=== PATIENT | male | born 1980 | race Caucasian/White ===

== ENCOUNTER 2018-01-27 07:02 | Inpatient (IN) | payer BC ==
--- NOTE | 2018-01-26 17:30 | Pre-op HX & Phy Repo 2 SIG ---
DATE OF ADMISSION: 01/27/2018 HISTORY OF PRESENT ILLNESS: The patient is a 38-year-old male in overall stable health with intractable ulcerative colitis. The patient developed ulcerative colitis 15 years ago in 2002. He has had treatment with multiple medications including biologics of Remicade, Humira, currently Xeljanz. He has been on prednisone in the past. The patient had a colonoscopy in October 2017 at [facility], which showed dysplasia in the sigmoid colon. The patient has looked into all the options including proctocolectomy with ileoanal J-pouch, proctocolectomy with conventional Hayley ileostomy and proctocolectomy with the Paul continent intestinal reservoir. The patient has considered all of the above and does not want an ileoanal J-pouch and he wishes to avoid an external appliance required with conventional ileostomy. The patient has discontinued his Xeljanz preoperatively. 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 PAST MEDICAL HISTORY: MEDICATIONS: Xeljanz 5 mg 2 taken twice daily, discontinue pre-op ALLERGIES TO MEDICATIONS: None. OPERATIONS: Appendectomy in 2005. REVIEW OF SYSTEMS: The patient has been told he has primary sclerosing cholangitis. He had an ERCP in January 2017, which was reported as negative PHYSICAL EXAMINATION: GENERAL: The patient is 5 foot 11 inches, 240 pounds. He is arriving from out of town and will be examined upon arrival and dictated separately. IMPRESSION: Intractable ulcerative colitis. PLAN: Proctocolectomy and Paul Continent Intestinal [place] DISCUSSION: Full discussion has been had with the patient and his regarding the nature of his condition, the nature of the surgery, indications, alternatives, options, and risks. I have discussed the nature of proctocolectomy including complete resection of the colon, rectum and anal canal and anus combined with creation of a Paul continent intestinal reservoir. I have discussed the possibility that surgery will have to be staged with the final decision made based on operative findings. He could require a total abdominal colectomy with temporary conventional ileostomy followed subsequently by completion proctectomy and conversion of his conventional ileostomy to a Paul continent intestinal reservoir. I have discussed the risks of the surgery including bleeding, infection, injury to adjacent structures or organs, possibility of bladder dysfunction, impotence, and retrograde ejaculation. I have discussed the risks of deep vein thrombosis despite maximal prophylaxis with preoperative heparin and sequential compression device stockings. I have discussed the need for Catalan catheter and gastrostomy. I have discussed the specific risks of the Paul continent intestinal reservoir including the potential for slipped valve, or fistula involving the pouch or valve, or other issues that could require revision based on function or structure of the pouch. I have also discussed the possibility that he will have pouchitis and treatments that could be utilized. All questions have been answered. I will have another detailed discussion in person with the patient when he arrives from out of town. Parker Monteiro M.D. DR: ODELL JOB#: [id number] CC: SAAD
[~2018-01-27] VITALS: Ht 180.3 cm; Wt 113.4 kg
[2018-01-27] MEDS ORDERED: Zolpidem 5mg tab ORAL PRN ×2 (08:00→20:30)
[2018-01-27] MEDS ORDERED: Heparin 2000 units/Ns 1000ml INJ PRN (08:30)
[2018-01-27] MEDS ORDERED: Lidocaine 1% Plain 30 ml INJ PRN (08:30)
[2018-01-27 08:38] LABS: BASOPHILS % (AUTO) 1.5 % (0.0-2.0); EOSINOPHILS % (AUTO) 1.5 % (0.0-3.0); HEMATOCRIT 52.1 % (42.0-52.0); HEMOGLOBIN 17.7 G/DL (14.2-18.0); MEAN CORPUSCULAR VOLUME 90 FL (80-99); MONOCYTES % (AUTO) 13.2 % (1.0-10.0); NEUTROPHILS % (AUTO) 66.8 % (45.0-75.0); PLATELET COUNT 267 K/UL (150-450); RED CELL DISTRIBUTION WIDTH 11.4 % (11.6-14.8); WHITE BLOOD COUNT 7.5 K/UL (4.8-10.8)
[2018-01-27 08:51] LABS: ANION GAP 7 mmol/L (5-15); BLOOD UREA NITROGEN 17 mg/dL (7-18); CALCIUM 8.8 MG/DL (8.5-10.1); CARBON DIOXIDE 26 MMOL/L (21-32); CHLORIDE 105 MMOL/L (98-107); CREATININE 1.1 MG/DL (0.55-1.30); POTASSIUM 4.1 MMOL/L (3.5-5.1); SODIUM 138 MMOL/L (136-145)
[2018-01-27 09:00] VITALS: BP 131/92
[2018-01-27 09:01] LABS: ALANINE AMINOTRANSFERASE 60 U/L (12-78); ALBUMIN 3.8 G/DL (3.4-5.0); ALBUMIN/GLOBULIN RATIO 0.9 (1.0-2.7); ALKALINE PHOSPHATASE 137 U/L (46-116); ASPARTATE AMINO TRANSFERASE 25 U/L (15-37); BILIRUBIN,TOTAL 0.7 MG/DL (0.2-1.0)
--- NOTE | 2018-01-27 10:47 | Diagnostic Imaging Report ---
Indications: Needs long-term IV access Technique: Ultrasound confirms patent compressible left basilic vein. Total sterile technique, including sterile probe cover and sterile gel, hat, mask,, sterile gown, large sterile drape, and preparation with 2% chlorhexidine utilized. Local anesthesia with 1% lidocaine. Under real-time ultrasound guidance, puncture basilic vein using 21-gauge needle, documented and archived, passage 0.018 guidewire under direct fluoroscopy, which was used to determine appropriate catheter length, exchange for 5 Nepali peel-away sheath. 5 Nepali Bard dual-lumen power PICC cut to 46 cm. It was inserted through the peel-away sheath. Peel-away sheath and guidewire removed. Catheter fixed to the skin. Both catheter ports aspirated and flushed. Patient tolerated procedure well, without immediate complication. Digital radiograph documents satisfactory catheter tip position, at the mid superior vena cava junction. Total fluoroscopy time 0.1 minutes. Total dose area product 14 dGycm2 Impression: Successful placement of left arm PICC under sonographic and fluoroscopic guidance, as described above.
[2018-01-27] MEDS ORDERED: Magnesium Citrate Liq Btl ORAL ONE (11:00)
[2018-01-27] MEDS ORDERED: LORazepam 1mg tab SL PRN (11:00)
[2018-01-27] MEDS ORDERED: Magnesium Citrate Liq Btl ORAL SCH (11:15)
--- NOTE | 2018-01-27 11:23 | Diagnostic Imaging Report ---
Indication: Cough, status post PICC placement Technique: One view of the chest Comparison: none Findings: There is a left arm PICC, tip which projects at the level of the mid superior vena cava. The lungs and pleural spaces are clear. The heart size is normal Impression: No acute process
[2018-01-27 12:07] LABS: APPEARANCE,URINE CLEAR; BILIRUBIN, URINE NEGATIVE (NEGATIVE); COLOR,URINE PALE YELLOW; GLUCOSE, URINE (UA) NEGATIVE (NEGATIVE); KETONES,URINE NEGATIVE (NEGATIVE); LEUKOCYTE ESTERASE ,URINE NEGATIVE (NEGATIVE); NITRITE,URINE NEGATIVE (NEGATIVE); PH,URINE 6 (4.5-8.0); PROTEIN,URINE NEGATIVE (NEGATIVE); UROBILINOGEN,URINE NORMAL MG/DL (0.0-1.0)
[2018-01-27] MEDS: Neomycin Sulfate 500mg Tab ORAL SCH ×3 (12:12→20:28)
--- NOTE | 2018-01-27 16:38 | General Progress Note ---
Progress Note Progress Note H&P dictated. Labs all satisfactory with Hgb 17.7, albumin 3.8, alkaline phos 137 (history of PSC) Abdomen slightly obese Perianal tissues normal Stopped Xeljanz 3 weeks ago Full discussion re the surgery, options, risks; all questions answered; and parents present. Parker Monteiro MD Jan 27, 2018 16:38
[2018-01-27] MEDS: D5 1/2NS w/KCl 20mEq 1,000 ML IV SCH ×2 (18:37→23:56)
--- NOTE | 2018-01-27 18:45 | Anethesia Preoperative Eval ---
Anesthesia Pre-op PMH/ROS General Date of Evaluation: Jan 27, 2018 Time of Evaluation: 18:42 Anesthesiologist: Loreto ASA Score: ASA 2 Mallampati Score Class I : Soft palate, uvula, fauces, pillars visible Class II: Soft palate, uvula, fauces visible Class III: Soft palate, base of uvula visible Class IV: Only hard plate visible Mallampati Classification: Class II Surgeon: Thania Diagnosis: Ulcerative colitis Surgical Procedure: Total proctocolectomy, Anesthesia History: none Family History: no anesthesia problems Allergies: Coded Allergies: No Known Allergies (Unverified , 01/27/18) Medications: see eMAR Past Medical History Cardiovascular: Denies: HTN, CAD, IN, valve dz, arrhythmia, other Pulmonary: Denies: asthma, COPD, CHANCE, other Gastrointestinal/Genitourinary: Reports: GERD, other - UC with cellular dysplasia; Denies: CRI, ESRD Neurologic/Psychiatric: Denies: dementia, CVA, depression/anxiety, TIA, other Endocrine: Denies: DM, hypothyroidism, steroids, other HEENT: Denies: cataract (L), cataract (R), glaucoma, ROBINSON (L), ROBINSON (R), other Hematology/Immune: Denies: anemia, DVT, bleeding disorder, other Musculoskeletal/Integumentary: Denies: OA, RA, DJD, DDD, edema, other Other: obesity PMH Narrative: as above PSxH Narrative: Appendectomy Anesthesia Pre-op Phys. Exam Physician Exam Last Vital Signs Date Time Temp Pulse Resp B/P (MAP) Pulse Ox O2 Delivery O2 Flow Rate FiO2 01/27/18 09:00 97.9 18 131/92 100 Room Air 97.9 Constitutional: NAD Neurologic: CN 2-12 intact Cardiovascular: RRR, no M/R/G Respiratory: CTA Gastrointestinal: S/NT/ND Airway Exam Mallampati Score: Class II MO: full Neck: short ROM: full Teeth: intact Dentures: no upper, no lower Anesthesia Pre-op A/P Labs Hematology Test 01/27/18 08:25 White Blood Count 7.5 K/UL (4.8-10.8) Red Blood Count 5.80 M/UL (4.70-6.10) Hemoglobin 17.7 G/DL (14.2-18.0) Hematocrit 52.1 % (42.0-52.0) H Mean Corpuscular Volume 90 FL (80-99) Mean Corpuscular Hemoglobin 30.4 PG (27.0-31.0) Mean Corpuscular Hemoglobin Concent 33.9 G/DL (32.0-36.0) Red Cell Distribution Width 11.4 % (11.6-14.8) L Platelet Count 267 K/UL (150-450) Mean Platelet Volume 6.5 FL (6.5-10.1) Neutrophils (%) (Auto) 66.8 % (45.0-75.0) Lymphocytes (%) (Auto) 17.0 % (20.0-45.0) L Monocytes (%) (Auto) 13.2 % (1.0-10.0) H Eosinophils (%) (Auto) 1.5 % (0.0-3.0) Basophils (%) (Auto) 1.5 % (0.0-2.0) Coagulation Test 01/27/18 08:25 Prothrombin Time 10.2 SEC (9.30-11.50) Prothromb Time International Ratio 1.0 (0.9-1.1) Activated Partial Thromboplast Time 28 SEC (23-33) Chemistry Test 01/27/18 08:25 Sodium Level 138 MMOL/L (136-145) Potassium Level 4.1 MMOL/L (3.5-5.1) Chloride Level 105 MMOL/L (98-107) Carbon Dioxide Level 26 MMOL/L (21-32) Anion Gap 7 mmol/L (5-15) Blood Urea Nitrogen 17 mg/dL (7-18) Creatinine 1.1 MG/DL (0.55-1.30) Estimat Glomerular Filtration Rate > 60 mL/min (>60) Glucose Level 90 MG/DL (74-106) Calcium Level 8.8 MG/DL (8.5-10.1) Total Bilirubin 0.7 MG/DL (0.2-1.0) Aspartate Amino Transf (AST/SGOT) 25 U/L (15-37) Alanine Aminotransferase (ALT/SGPT) 60 U/L (12-78) Alkaline Phosphatase 137 U/L (46-116) H Total Protein 8.1 G/DL (6.4-8.2) Albumin 3.8 G/DL (3.4-5.0) Globulin 4.3 g/dL Albumin/Globulin Ratio 0.9 (1.0-2.7) L Risk Assessment & Plan Assessment: ASA 2 Plan: GA with ETT Status Change Before Surgery: No Pre-Antibiotics Drug: As scheduled Roman Dangelo MD Jan 27, 2018 18:45
--- NOTE | 2018-01-27 19:30 | Pre-op HX & Phy Repo 2 SIG ---
DATE OF ADMISSION: 01/27/2018 HISTORY OF PRESENT ILLNESS: The patient has now arrived from out of town and is examined. ADDITIONAL HISTORY: The patient states that he had a liver biopsy in 2004, which is the source of his diagnosis of primary sclerosing cholangitis with a negative ERCP in 2017. He also has plantar fasciitis of the right heel, injections had not been helpful, but he sleeps with a boot with good relief. PHYSICAL EXAMINATION: GENERAL: He is well developed, well nourished, 5 foot 11 inches, and 247 pounds. HEENT: Within normal limits. LUNGS: Clear. HEART: Regular rhythm. BREASTS: Without masses. ABDOMEN: Soft with a mild panniculus. There is no mass. No tenderness. No organomegaly. No distention. No inguinal lymphadenopathy. GENITALIA: Within normal limits. RECTAL: Normal perianal skin. EXTREMITIES: Without edema. Pulses 3+ femoral to pedal bilaterally. Left upper extremity congenital port-wine stain. NEUROLOGIC: Physiologic. IMPRESSION: Intractable ulcerative colitis. PLAN: Proctocolectomy with Paul continent intestinal reservoir. DISCUSSION: Full discussion has been had with the patient, his and parents all present including the nature of the surgery, indications, alternatives, options, and risks. I have discussed the general risks of surgery including bleeding, infection, injury to adjacent structures or organs, failure of the perineal incision to heal, bladder dysfunction, sexual dysfunction with impotence or retrograde ejaculation, deep vein thrombosis despite prophylaxis, anesthetic reactions, neuralgia, etc. I have discussed the specific risks of the Paul continent intestinal reservoir procedure including the potential need for revision due to slipped valve or fistula of pouch or valve or other issues with the pouch or stoma. All questions have been answered. The patient understands and agrees to proceed. A dual lumen PICC line has been placed. He is getting bowel prep, both mechanical and antibiotic. He will receive intravenous hydration, receive intravenous antibiotics started tonight, and preoperative subcutaneous heparin. Parker Monteiro M.D. DR: ODELL JOB#: [id number] CC: SAAD
[2018-01-27] MEDS: Dyna-Hex 2% Top Sol 2oz TOPIC SCH (20:28)
[2018-01-27 21:00] VITALS: BP 127/85
[2018-01-27] MEDS: Ampicillin/Sulbactam Sod 3 GM in NS 110 ML IV SCH (23:57)
[2018-01-28] VITALS (13 sets, daily range): BP systolic 64–136; BP diastolic 62–88
[2018-01-28] MEDS ORDERED: Heparin 5000 units/ml inj SUBQ ONE (05:30)
[2018-01-28] MEDS: Ampicillin/Sulbactam Sod 3 GM in NS 110 ML IV SCH ×3 (06:13→23:36)
[2018-01-28] MEDS ORDERED: Propofol 200mg/20ml IV ONE ×2 (06:45→07:04)
[2018-01-28] MEDS ORDERED: Lidocaine 1% MPF 10mg/ml 5ml ONE (06:45)
[2018-01-28] MEDS ORDERED: Dexamethasone 4mg/ml vial ONE (06:45)
[2018-01-28] MEDS ORDERED: Bacitracin 50000 Units Vial ONE (07:07)
[2018-01-28] MEDS ORDERED: NeoSporin Gu Irrig 1ml Amp IRRIG ONE (07:07)
--- NOTE | 2018-01-28 07:15 | Pre-Procedure Note/Attestation ---
Pre-Procedure Note/Attestation Complete Prior to Procedure Planned Procedure: not applicable Procedure Narrative: proctocolectomy, vazquez continent intestinal reservoir, gastrostomy Indications for Procedure Pre-Operative Diagnosis: ulcerative colitis Attestation I attest that I discussed the nature of the procedure; its benefits; risks and complications; and alternatives (and the risks and benefits of such alternatives ), prior to the procedure, with the patient (or the patient's legal mechanical service representative). I attest that, if there was a reasonable possibility of needing a blood transfusion, the patient (or the patient's legal mechanical service representative) was given the [facility] standardized written summary, pursuant to the Carlos Vasquez Blood Safety Act ([place] Health and Safety Code # 1645, as amended). I attest that I re-evaluated the patient just prior to the surgery and that there has been no change in the patient's H&P, except as documented below: none Parker Monteiro MD Jan 28, 2018 07:15
[2018-01-28] MEDS ORDERED: fentaNYL 100 mcg/2 mL IV ONE (07:17)
[2018-01-28] MEDS ORDERED: Zemuron 50mg/5ml Inj IV ONE (07:17)
[2018-01-28] MEDS ORDERED: Sterile Water Irrig 1000ml IRRIG ONE (07:30)
[2018-01-28] MEDS ORDERED: LR 1000ml ONE (07:30)
[2018-01-28] MEDS ORDERED: NS Irrig 1000ml ONE (07:30)
[2018-01-28] MEDS ORDERED: ePHEDrine 50mg/ml Inj ONE (09:01)
[2018-01-28] MEDS: D5 1/2NS w/KCl 20mEq 1,000 ML IV SCH (10:15)
[2018-01-28] MEDS ORDERED: LR 1000ml 1,000 ML IVLG SCH (12:39)
[2018-01-28] MEDS ORDERED: Midazolam 2mg/2ml Inj IVP PRN (12:45)
[2018-01-28] MEDS ORDERED: DiphenhydrAMINE 50mg/ml Inj IVP PRN ×2 (12:45→15:30)
[2018-01-28] MEDS ORDERED: fentaNYL 100 mcg/2 mL IV PRN (12:45)
[2018-01-28] MEDS ORDERED: Labetalol 5mg/ml 20ml vial IV PRN (12:45)
[2018-01-28] MEDS ORDERED: Acetaminophen (Non formulary) 100 ML IV ONE (12:45)
[2018-01-28] MEDS ORDERED: Hydromorphone 0.5mg/0.5ml inj IVP PRN (12:45)
[2018-01-28] MEDS ORDERED: Neostigmine 1mg/ml 10ml Inj ONE (14:48)
[2018-01-28] MEDS ORDERED: Glycopyrrolate 0.2mg/ml 1ml Vial ONE (14:49)
[2018-01-28] MEDS ORDERED: Ketorolac 30mg Inj ONE (14:51)
--- NOTE | 2018-01-28 15:29 | Brief Operative Note ---
Immediate Post Operative Note Operative Note Pre-op Diagnosis: ulcerative colitis Procedure: proctocolectomy, Paul continent intestinal reservoir, gastrostomy Post-op Diagnosis: same Post-op Diagnosis: same as pre-op Findings: consistent w/pre-op dx studies Surgeon: courtney Medicaid Service Coordinator: tati Anesthesiologist: Specimen: yes - colon, rectum, anal canal and anus; small bowel trimming Complications: none Condition: stable Fluids: 2500cc Estimated Blood Loss: volume - 200cc Drains: other - YOAN x2, 28 Catalan to Paul pouch, 18 Catalan gastrostomy Implant(s) used?: No Parker Monteiro MD Jan 28, 2018 15:29
[2018-01-28] MEDS ORDERED: Acetaminophen 650mg/20.3ml GT PRN (15:30)
[2018-01-28] MEDS ORDERED: LORazepam 1mg tab SL PRN ×2 (15:30)
[2018-01-28] MEDS ORDERED: Morphine Sulfate 4mg/ml Inj (IV USE ONLY) IV PRN (15:40)
[2018-01-28] MEDS ORDERED: Morphine Sulfate 2mg/ml Inj(IV/IM USE ONLY) IVP PRN (15:40)
[2018-01-28] MEDS ORDERED: Rate Change PCA 1 Each MISC PRN (15:40)
[2018-01-28] MEDS ORDERED: Naloxone 0.4mg/ml Inj IVP PRN (15:40)
--- NOTE | 2018-01-28 15:40 | Immediate Post-Op Evaluation ---
Immediate Post-Op Evalulation Immediate Post-Op Evalulation Procedure: proctocolectomy, continent intestinal resevoir, catheter gastrostomy Date of Evaluation: Jan 28, 2018 Time of Evaluation: 15:20 IV Fluids: LR 2500ml Blood Products: 0 Estimated Blood Loss: 200ml Urinary Output: 600ml Blood Pressure Systolic: 130 Blood Pressure Diastolic: 80 Pulse Rate: 115 Respiratory Rate: 16 O2 Sat by Pulse Oximetry: 100 Temperature (Fahrenheit): 97.5 Pain Score (1-10): 4 Nausea: No Vomiting: No Complications none Patient Status: awake, patent, none Hydration Status: adequate Drug: unasyn 3grams, metronidazone 500mg Given Within 1 Hr of Incision: No Time Given: 12:00 Hannah Alba M.D. Jan 28, 2018 15:40
[2018-01-28] MEDS: PCA Morphine 1mg/ml 30 ML IV PRN ×2 (15:41→21:20)
--- NOTE | 2018-01-28 15:49 | Cardiology Report ---
APPROVED REPORT EKG Measurement Heart [id number] Normal sinus rhythm Normal ECG
[2018-01-28] MEDS ORDERED: PCA Education Pamphlet MISC ONE (17:00)
--- NOTE | 2018-01-28 17:15 | Operative Note - Dictated ---
DATE OF OPERATION: 01/28/2018 SURGEON: Parker Monteiro M.D. OIL DISPENSER SURGEON: Freddie Holcomb M.D. ANESTHESIOLOGIST: Hannah Alba M.D. TYPE OF ANESTHESIA: General endotracheal. PREOPERATIVE DIAGNOSIS: Intractable ulcerative colitis with dysplasia POSTOPERATIVE DIAGNOSIS: Intractable ulcerative colitis with dysplasia OPERATION PERFORMED: 1. Proctocolectomy. 2. Paul continent intestinal reservoir. 3. Catheter gastrostomy. INDICATIONS AND FINDINGS: The patient has had ulcerative colitis for 15 years and been on various medications, most recently Xeljanz. Colonoscopy in October 2017 revealed ulcerative pancolitis with rectal bleeding and high and low-grade glandular dysplasia at 55 cm. The patient is 5 foot 11 inches, 240 pounds. Operative findings included markedly foreshortened mesentery. DESCRIPTION OF PROCEDURE: The patient was taken to the operating room and under general endotracheal anesthesia with sequential compression device stockings and Catalan catheter in place and having received preoperative intravenous antibiotics and subcutaneous heparin, the patient was prepped and draped in the usual fashion in lithotomy position using Demar stirrups. A midline incision was made from the midepigastrium to the pubis, but ultimately had to be extended toward the xiphoid. Hemostasis was achieved with cautery. Abdominal exploration revealed the liver to be normal in appearance and palpation. The gallbladder was slightly distended, but no stones were palpable and was otherwise unremarkable. There was an ample amount of small intestine, all of which was normal including stomach and duodenum. The colon had chronic changes consistent with diffuse ulcerative colitis. The bladder was adherent to the posterior sheath of the lower right rectus and was taken down. A Bookwalter retractor was used. The terminal ilium and right colon were mobilized along the line of Toldt. The hepatic flexure was taken down protecting the duodenum. The lesser sac was entered and the omentum was resected with the colon. Using the Thunderbeat the mesentery was divided and the splenic flexure was taken down and the descending colon mobilized along the line of Toldt as was the rectosigmoid. Both ureters were visualized, and the ureters and bladder were protected throughout the procedure. The major mesenteric vessels were ligated with #0 silk. The presacral hollow was entered. The lateral stalks were divided and the bladder dissected anteriorly dissecting the rectum down to the prostate. I divided the rectosigmoid colon with the DYAN stapling device and the abdominal colon was taken off the field and given to the pathologist who found no evidence of overt malignancy. I then went to the perineum and placed a 0 silk pursestring around the anus. With an elliptical incision and an intersphincteric dissection, the rectum, anal canal, and anus were circumferentially dissected. The abdominal cavity was entered posteriorly and additional dissection performed from above. Finally, the entire specimen was mobilized and removed intact and given to the pathologist who again found no evidence of overt malignancy. Through separate stab incisions through the medial buttocks on each side of the perineal incision, 19 mm round Jethro drains were placed into the presacral space and each was sutured to the skin with a 2-0 silk suture and connected to bulb suction. The perineal floor was closed in layers with interrupted 0 Vicryl and interrupted 2-0 Vicryl and skin closed with interrupted vertical mattress 2-0 nylon sutures. A dry sterile dressing was applied, and at this point the patient was taken out of lithotomy position and a pillow placed under his knees and the sterile field protected. Attention was then directed toward creating the Paul continent intestinal reservoir. The stapled end of the ileum was imbricated with interrupted 3-0 silk and then 12 cm proximal the bowel was marked with a chromic suture for the collar segment. 15 cm proximal to this was marked for the ileal reservoir. Then the two 15 cm loops were placed side by side, and with appropriately placed enterotomies and using the DYAN 75 stapling device, the ileal pouch was created. The pouch was everted and the staple line was intact without any defects. The mucosal aspect was inspected and hemostasis secured. The apex was closed with a 3-0 silk suture. The junction of the afferent bowel and the pouch was marked with a chromic suture and 12 cm proximal marked for the valve segment. A 2-fingerbreadth mesenteric hiatus created at this point using the Thunderbeat to control the mesentery. The abdominal wall measured 6 cm. The appropriate length access segment was measured and marked. Preserving 2 good vessels to the access segment, the bowel was divided proximally with the linear stapler 30, and distally left open to become the new stoma. The mesentery was short and not mobile. The pouch could not reach deeply into the pelvis. The bladder lay draped over the deep pelvis and several 3-0 chromic sutures were placed to the peritoneum to seal this area. Then the valve segment was prepared by stripping the mesentery on each side and the serosa was scarified with cautery. With gradual intussusception, a 6.0 cm long nipple valve was created. Two applications of the PI55 stapling device with 4.8 mm maribel were placed 90 degrees away from the mesentery on each side. 3-0 silk sutures were placed between the access segment near the mesentery on both sides and the pouch. Then a third application of the PI55 stapling device with 4.8 mm maribel was made to staple the valve to the anterior pouch wall. Additional 3-0 silks were placed between access segment and pouch. Now intestinal continuity was restored by taking the proximal end of the small bowel imbricating the staple line with 3-0 silk, and with a very short blind end, placed side by side to the pouch enterotomy. An outer layer of 3-0 silk was placed. The proximal bowel was opened and full-thickness continuous locking 2-0 Vicryl placed followed by 3-0 silk anterior sutures. A 2 fingerbreadth and slightly wider anastomosis was created. The end of the collar was brought through the mesenteric hiatus and sutured to itself, to the access segment and to the pouch with interrupted 3-0 silk sutures. A 28-Kosovan Catalan catheter was readily placed into the pouch. During the procedure, a Mars suction was used to confirm and maintain alignment. With the 28-Kosovan Catalan catheter in the pouch and the afferent bowel manually occluded, the pouch was distended with 150 mL of saline. There was no evidence of any extravasation, and when the catheter was removed, there was no incontinence. The catheter was reintroduced and the pouch decompressed. At a previously marked site, low in the right lower quadrant, a 2.5 cm narrow ellipse of skin was excised in transverse orientation and a generous cruciate incision made in the fascia with a 2 to 3 fingerbreadth abdominal wall hiatus created. The pouch was sutured to the peritoneum with interrupted 3-0 Vicryl. There was moderate difficulty bringing the access segment through to become the new stoma because the mesentery was so foreshortened and contracted. There was slight redundancy of the access segment, but the stoma was primarily matured with continuous 2-0 Vicryl locking sutures starting at the 3 and 9 o'clock positions. The 28-Kosovan Catalan catheter was positioned in the pouch and then sutured to the skin with two sutures of 2-0 silk. It was then flushed and connected to a gravity drainage bag. I then placed a catheter gastrostomy by bringing an 18-Kosovan Catalan catheter through a stab incision in the left upper quadrant, and placing it to the anterior stomach greater curve body between two concentric 2-0 chromic pursestring sutures with the 18-Kosovan Catalan inserted into the stomach with the balloon inflated and placed in the fundus and the stomach then sutured to the anterior abdominal wall with multiple interrupted 3-0 silk sutures. The catheter was flushed and connected to a gravity drainage bag. The catheter was sutured to the skin with a 2-0 silk suture. The entire abdomen was inspected and irrigated and hemostasis was secure. Throughout the procedure, there were frequent changes of gloves and antibiotic soaked laps were used to protect the abdominal wall. The midline incision was closed in one layer with continuous #1 looped PDS starting at both ends. Subcutaneous tissues were again irrigated with antibiotic solution and the skin closed with maribel. Dry sterile dressings were applied to the perineum and the abdominal incision. Final sponge and needle counts were correct. ESTIMATED BLOOD LOSS: 200 mL. The patient tolerated the procedure well and left the operating room in stable condition. Parker Monteiro M.D. DR: HARRIS JOB#: [id number] CC: SAAD
[2018-01-28] MEDS: D5 1/4NS w/KCl 20mEq 1,000 ML IV SCH ×2 (17:28→23:34)
--- NOTE | 2018-01-28 17:30 | General Progress Note ---
Progress Note Progress Note Sleepy but arousable, then alert. VSS with p 110 c/o mild numbness first and second digits at tips both hands. Lower extremities wnl Gastrostomy bilious Urine clear yellow BCIR catheter serosang as expected Imp. Stable Plan: Bedrest NPO Parker Monteiro MD Jan 28, 2018 17:30
[2018-01-28] MEDS: PCA shift volume MISC SCH (19:00)
[2018-01-28] MEDS: Dyna-Hex 2% Top Sol 2oz TOPIC SCH (20:17)
[2018-01-29] VITALS: BP 125/79
[2018-01-29] MEDS: PCA Morphine 1mg/ml 30 ML IV PRN ×4 (02:33→20:40)
[2018-01-29 04:00] VITALS: BP 130/64
[2018-01-29] MEDS: D5 1/4NS w/KCl 20mEq 1,000 ML IV SCH ×4 (05:46→21:21)
[2018-01-29] MEDS: Ampicillin/Sulbactam Sod 3 GM in NS 110 ML IV SCH ×3 (05:46→18:29)
[2018-01-29 06:27] LABS: HEMATOCRIT 48.8 % (42.0-52.0); HEMOGLOBIN 16.5 G/DL (14.2-18.0); MEAN CORPUSCULAR VOLUME 92 FL (80-99); PLATELET COUNT 236 K/UL (150-450); RED BLOOD COUNT 5.31 M/UL (4.70-6.10); RED CELL DISTRIBUTION WIDTH 11.6 % (11.6-14.8); WHITE BLOOD COUNT 20.8 K/UL (4.8-10.8)
[2018-01-29 06:35] LABS: ALANINE AMINOTRANSFERASE 91 U/L (12-78); ALBUMIN 2.6 G/DL (3.4-5.0); ALBUMIN/GLOBULIN RATIO 0.7 (1.0-2.7); ALKALINE PHOSPHATASE 96 U/L (46-116); ANION GAP 3 mmol/L (5-15); ASPARTATE AMINO TRANSFERASE 228 U/L (15-37); BILIRUBIN,TOTAL 0.5 MG/DL (0.2-1.0); BLOOD UREA NITROGEN 15 mg/dL (7-18); CALCIUM 7.6 MG/DL (8.5-10.1); CARBON DIOXIDE 27 MMOL/L (21-32); CHLORIDE 104 MMOL/L (98-107); CREATININE 1.2 MG/DL (0.55-1.30); POTASSIUM 5.1 MMOL/L (3.5-5.1); SODIUM 133 MMOL/L (136-145)
[2018-01-29] MEDS: PCA shift volume MISC SCH ×2 (07:14→19:22)
[2018-01-29 08:00] VITALS: BP 119/73
--- NOTE | 2018-01-29 08:05 | General Progress Note ---
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 Numbness of fingertips digits 1-3 right hand with normal strength x3 nerve distribution, left hand numbness resolved - normal strength x 3 nerve distribution. Legs/feet - wnl Chest decreased expansion but clear Cor - reg rhythm Abdomen mildly distended, soft, incision clean, stoma dark Perineal incision clean 12 hours overnight: urine 650 Gastrostomy scant bilious BCIR ileo 50 sanguinous YOAN drains 10/10 WBC 20,800 Hgb 16.5 BUN 15 Cr 1.2 Na 133 K 5.1 slight increase ALT/'AST ( normal pre-op) Normal Alk phos (slight elevation pre-op) Albumin 2.6 Imp. Ileus Atelectasis Malnutrition and extensive intestinal surgery Plan: NPO Incentive spirometer Bedrest today with SCDs TPN f/u labs Will re-examine the stoma later today re possible ischemia Parker Monteiro MD Jan 29, 2018 08:05
[2018-01-29] MEDS ORDERED: Dextrose 10% 1,000 ML IV PRN (11:00)
--- NOTE | 2018-01-29 11:09 | 48 Hour Post Anesthesia Eval ---
Post Anesthesia Evaluation Procedure: proctocolectomy, continent intestinal resevoir, catheter gastrostomy Date of Evaluation: Jan 29, 2018 Time of Evaluation: 11:08 Blood Pressure Systolic: 128 0: 62 Pulse Rate: 84 Respiratory Rate: 22 Temperature (Fahrenheit): 97.6 O2 Sat by Pulse Oximetry: 98 Airway: patent Nausea: No Vomiting: No Pain Intensity: 4 Hydration Status: adequate Cardiopulmonary Status: stable Mental Status/LOC: patient returned to baseline Follow-up Care/Observations: n/a Post-Anesthesia Complications: none Follow-up care needed: N/A Roman Dangelo MD Jan 29, 2018 11:09
[2018-01-29 12:00] VITALS: BP 112/61
[2018-01-29] MEDS ORDERED: Phytonadione 10 mg/mL 1ml amp SUBQ SCH (12:30)
[2018-01-29 16:00] VITALS: BP 149/78
[2018-01-29] MEDS: Heparin 5000 units/ml inj SUBQ SCH (18:00)
[2018-01-29 20:00] VITALS: BP 121/74
[2018-01-29] MEDS: Dyna-Hex 2% Top Sol 2oz TOPIC SCH (20:16)
[2018-01-29] MEDS ORDERED: Tpn 2,000 ML IV SCH (21:00)
[2018-01-29] MEDS ORDERED: Fat Emulsion Iv 20% 250 ML IV SCH (21:00)
[2018-01-29] MEDS: Phytonadione 10 mg/mL 1ml amp SUBQ SCH (21:08)
[2018-01-29] MEDS: Fat Emulsion Iv 20% 240 ML in Tpn 1,920 ML IV SCH (21:09)
[2018-01-29] MEDS ORDERED: Tubing IV Secondary IV ONE (22:02)
[2018-01-29] MEDS ORDERED: NS Irrig 1000ml ONE (22:02)
[2018-01-29] MEDS ORDERED: NS 500ML ONE (22:02)
[2018-01-29] MEDS ORDERED: D5 1/2NS 1000ml IV ONE (22:02)
[2018-01-30] VITALS: BP 126/73
[2018-01-30] MEDS: Ampicillin/Sulbactam Sod 3 GM in NS 110 ML IV SCH ×4 (00:05→17:51)
[2018-01-30] MEDS: NovoLOG Insulin Flexpen SUBQ SCH ×4 (00:17→17:54)
[2018-01-30 04:00] VITALS: BP 131/75
[2018-01-30 05:35] LABS: HEMATOCRIT 39.6 % (42.0-52.0); HEMOGLOBIN 13.6 G/DL (14.2-18.0); MEAN CORPUSCULAR VOLUME 92 FL (80-99); PLATELET COUNT 211 K/UL (150-450); RED BLOOD COUNT 4.29 M/UL (4.70-6.10); RED CELL DISTRIBUTION WIDTH 11.6 % (11.6-14.8); WHITE BLOOD COUNT 16.2 K/UL (4.8-10.8)
[2018-01-30 05:47] LABS: ANION GAP 2 mmol/L (5-15); BLOOD UREA NITROGEN 14 mg/dL (7-18); CALCIUM 7.6 MG/DL (8.5-10.1); CARBON DIOXIDE 31 MMOL/L (21-32); CHLORIDE 104 MMOL/L (98-107); CREATININE 1.1 MG/DL (0.55-1.30); POTASSIUM 4.3 MMOL/L (3.5-5.1); SODIUM 137 MMOL/L (136-145)
[2018-01-30] MEDS: Heparin 5000 units/ml inj SUBQ SCH ×2 (05:48→18:18)
[2018-01-30] MEDS: PCA shift volume MISC SCH ×2 (07:00→19:00)
[2018-01-30] MEDS ORDERED: Naloxone 0.4mg/ml Inj IVP PRN (07:53)
[2018-01-30 08:00] VITALS: BP 126/75
[2018-01-30] MEDS ORDERED: Morphine Sulfate 2mg/ml Inj(IV/IM USE ONLY) IVP PRN (08:00)
[2018-01-30] MEDS ORDERED: Rate Change PCA 1 Each MISC PRN (08:00)
[2018-01-30] MEDS ORDERED: DiphenhydrAMINE 50mg/ml Inj IVP PRN (08:00)
[2018-01-30] MEDS: PCA Morphine 1mg/ml 30 ML IV PRN ×2 (08:01→18:17)
--- NOTE | 2018-01-30 08:25 | General Progress Note ---
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 Fairly good IS effort with chest clear Abdomen mildly distended, incision clean, stoma pinker Perineal incision clean with YOAN drains intact x 2 Urine 1450 Gastrostomy 625 BCIR ileo - scant serosang JPs 80+125 but much decreased overnight outputs WBC down 16,200 Hgb down 13.6 BUN 14 Cr 1.1 Imp. Ileus Malnutrition Plan: TPN started last night continue Catalan (pelvic dissection + proctectomy) NPO Mobilize with PT Mobility Protocol Heparin 5000units SQ q12h since yesterday f/u labs Parker Monteiro MD Jan 30, 2018 08:25
[2018-01-30] MEDS: Morphine Sulfate 4mg/ml Inj (IV USE ONLY) IV PRN (10:47)
[2018-01-30 12:45] VITALS: BP 121/78
[2018-01-30 16:00] VITALS: BP 123/72
[2018-01-30] MEDS: D5 1/4NS w/KCl 20mEq 1,000 ML IV SCH (17:51)
[2018-01-30 20:03] VITALS: BP 121/73
[2018-01-30] MEDS: Dyna-Hex 2% Top Sol 2oz TOPIC SCH (20:30)
[2018-01-30] MEDS: Fat Emulsion Iv 20% 240 ML in Tpn 1,920 ML IV SCH (20:53)
[2018-01-31] VITALS: BP 105/65
[2018-01-31] MEDS: Ampicillin/Sulbactam Sod 3 GM in NS 110 ML IV SCH ×5 (00:19→17:36)
[2018-01-31] MEDS: NovoLOG Insulin Flexpen SUBQ SCH ×4 (02:37→17:45)
[2018-01-31 04:00] VITALS: BP 126/83
[2018-01-31] MEDS: Heparin 5000 units/ml inj SUBQ SCH (06:08)
[2018-01-31 06:14] LABS: BASOPHILS % (AUTO) 0.8 % (0.0-2.0); EOSINOPHILS % (AUTO) 1.4 % (0.0-3.0); HEMATOCRIT 36.6 % (42.0-52.0); HEMOGLOBIN 12.5 G/DL (14.2-18.0); LYMPHOCYTES % (AUTO) 11.8 % (20.0-45.0); MEAN CORPUSCULAR VOLUME 92 FL (80-99); MONOCYTES % (AUTO) 10.6 % (1.0-10.0); NEUTROPHILS % (AUTO) 75.3 % (45.0-75.0); PLATELET COUNT 221 K/UL (150-450); RED BLOOD COUNT 3.99 M/UL (4.70-6.10); RED CELL DISTRIBUTION WIDTH 11.4 % (11.6-14.8); WHITE BLOOD COUNT 10.8 K/UL (4.8-10.8)
[2018-01-31 06:24] LABS: ANION GAP 4 mmol/L (5-15); BLOOD UREA NITROGEN 13 mg/dL (7-18); CARBON DIOXIDE 29 MMOL/L (21-32); CHLORIDE 105 MMOL/L (98-107); CREATININE 0.8 MG/DL (0.55-1.30); PHOSPHORUS 2.2 MG/DL (2.5-4.9); POTASSIUM 3.5 MMOL/L (3.5-5.1); SODIUM 138 MMOL/L (136-145)
[2018-01-31] MEDS: PCA Morphine 1mg/ml 30 ML IV PRN ×2 (06:38→19:48)
[2018-01-31 06:43] LABS: % IRON SATURATION 9 % (15-50); IRON 15 ug/dL (50-175); TOTAL IRON BINDING CAPACITY 174 ug/dL (250-450)
[2018-01-31] MEDS: PCA shift volume MISC SCH ×2 (07:00→19:15)
--- NOTE | 2018-01-31 09:35 | General Progress Note ---
Progress Note Progress Note AVSS Ambulated in hallways yesterday. Still requiring breakthrough MS for pain Had some gas pains Abdomen soft, incision clean, stoma pink Perineum incision clean Urine 1800 Gastrostomy 1365 bilious BCIR ileo 15 serosang JPs 115 + 115 serosang WBC now wnl 10,800 Hgb 12.5 BMP - wnl Mg low 1.7 Phos low 2.2 Iron 15 B12 453 Folic acid 8.5 (8.6-58.9) Imp: Ileus Anemia with severe iron and folic acid deficiency, mid-range B12 level Plan: NPO, TPN, continue Catalan d/c SQ heparin Add Toradol for pain prn q6h 30mg IV Venofer 100mg IV daily; B12 1000mcg IM x 1; Add Folic acid 1mg to TPN daily Ambulate BID with PT Parker Monteiro MD Jan 31, 2018 09:35
[2018-01-31] MEDS ORDERED: Ketorolac 30mg Inj IV SCH (10:00)
[2018-01-31] MEDS ORDERED: NS Irrig 1000ml ONE (10:34)
[2018-01-31] MEDS: Morphine Sulfate 4mg/ml Inj (IV USE ONLY) IV PRN (11:00)
[2018-01-31 11:57] VITALS: BP 123/83
[2018-01-31] MEDS ORDERED: Vitamin B12 1000mcg/ml Inj IM SCH (12:00)
[2018-01-31] MEDS: D5 1/4NS w/KCl 20mEq 1,000 ML IV SCH (13:00)
[2018-01-31] MEDS ORDERED: Potassium Phosphate 20 MM in NS 275 ML IV SCH (14:30)
[2018-01-31 16:34] VITALS: BP 116/74
[2018-01-31] MEDS: Ketorolac 30mg Inj IV PRN (18:17)
[2018-01-31 20:00] VITALS: BP 114/67
[2018-01-31] MEDS: Dyna-Hex 2% Top Sol 2oz TOPIC SCH (20:27)
[2018-01-31] MEDS: Iron Sucrose 100 MG in NS 55 ML IV SCH (20:28)
[2018-01-31] MEDS: Fat Emulsion Iv 20% 240 ML in Tpn 1,920 ML IV SCH (20:29)
[2018-02-01] VITALS: BP 121/74
[2018-02-01] MEDS: Ampicillin/Sulbactam Sod 3 GM in NS 110 ML IV SCH ×4 (00:22→18:04)
[2018-02-01] MEDS: NovoLOG Insulin Flexpen SUBQ SCH ×4 (00:24→18:17)
[2018-02-01] MEDS: D5 1/4NS w/KCl 20mEq 1,000 ML IV SCH (03:31)
[2018-02-01 04:00] VITALS: BP 123/77
[2018-02-01 05:42] LABS: HEMATOCRIT 37.8 % (42.0-52.0); LYMPHOCYTES % (AUTO) 7.5 % (20.0-45.0); MEAN CORPUSCULAR VOLUME 92 FL (80-99); MONOCYTES % (AUTO) 12.8 % (1.0-10.0); NEUTROPHILS % (AUTO) 75.6 % (45.0-75.0); PLATELET COUNT 252 K/UL (150-450); RED BLOOD COUNT 4.12 M/UL (4.70-6.10); RED CELL DISTRIBUTION WIDTH 11.3 % (11.6-14.8); WHITE BLOOD COUNT 10.2 K/UL (4.8-10.8)
[2018-02-01 06:23] LABS: ANION GAP 4 mmol/L (5-15); BLOOD UREA NITROGEN 17 mg/dL (7-18); CALCIUM 8.1 MG/DL (8.5-10.1); CARBON DIOXIDE 29 MMOL/L (21-32); CHLORIDE 105 MMOL/L (98-107); POTASSIUM 3.9 MMOL/L (3.5-5.1); SODIUM 138 MMOL/L (136-145)
[2018-02-01] MEDS: PCA shift volume MISC SCH ×2 (07:30→19:00)
[2018-02-01 08:00] VITALS: BP 115/72
[2018-02-01] MEDS ORDERED: Naloxone 0.4mg/ml Inj IV PRN (08:30)
[2018-02-01] MEDS ORDERED: PCA Morphine 1mg/ml 30 ML IV PRN ×2 (08:45→11:00)
[2018-02-01] MEDS ORDERED: Rate Change PCA 1 Each MISC PRN (08:45)
[2018-02-01] MEDS ORDERED: Morphine Sulfate 2mg/ml Inj(IV/IM USE ONLY) IVP PRN (09:00)
[2018-02-01] MEDS ORDERED: PCA Education Pamphlet MISC SCH (09:00)
[2018-02-01] MEDS: Morphine Sulfate 4mg/ml Inj (IV USE ONLY) IV PRN ×2 (09:52→21:15)
--- NOTE | 2018-02-01 10:40 | General Progress Note ---
Progress Note Progress Note AVSS Ambulated 3 circles around hallways this morning. Not much benefit from Toradol IV Abdomen soft, mild distention, healing nicely incision and stoma Perineum incision healing nicely Urine 1400 Gastrostomy 1100 BCIR ileo 130 enteric YOAN drains 8+10 WBC 10,200 Hgb 13 (stable) BMP - wnl Imp. Ileus Plan; d/c continuous basal infusion of TEST DESIGN ENGINEER morphine continue TPN and NPO and Parker Brady MD Feb 01, 2018 10:40
[2018-02-01 12:00] VITALS: BP 110/69
[2018-02-01 16:00] VITALS: BP 124/70
[2018-02-01 20:18] VITALS: BP 122/74
[2018-02-01] MEDS: Iron Sucrose 100 MG in NS 55 ML IV SCH (20:23)
[2018-02-01] MEDS: Fat Emulsion Iv 20% 240 ML in Tpn 1,920 ML IV SCH (20:24)
[2018-02-01] MEDS: Dyna-Hex 2% Top Sol 2oz TOPIC SCH (20:28)
[2018-02-02] MEDS: Ampicillin/Sulbactam Sod 3 GM in NS 110 ML IV SCH ×4 (00:19→17:49)
[2018-02-02] MEDS: NovoLOG Insulin Flexpen SUBQ SCH ×4 (00:19→17:48)
[2018-02-02 00:48] VITALS: BP 120/69
[2018-02-02 04:10] VITALS: BP 116/66
[2018-02-02] MEDS: D5 1/4NS w/KCl 20mEq 1,000 ML IV SCH (04:38)
[2018-02-02] MEDS: PCA shift volume MISC SCH ×2 (07:00→19:19)
[2018-02-02 08:10] VITALS: BP 118/67
[2018-02-02] MEDS ORDERED: PCA Morphine 1mg/ml 30 ML IV PRN (08:30)
[2018-02-02] MEDS ORDERED: LORazepam 1mg tab SL PRN (08:30)
[2018-02-02] MEDS ORDERED: Rate Change PCA 1 Each MISC PRN (08:30)
[2018-02-02] MEDS ORDERED: Morphine Sulfate 2mg/ml Inj(IV/IM USE ONLY) IVP PRN (08:30)
--- NOTE | 2018-02-02 08:32 | General Progress Note ---
Progress Note Progress Note AVSS Ambulated in hallways twice yesterday. Abdomen soft, healing nicely Perineum healing nicely - YOAN #1 removed Urine 1999 Gastrostomy 1265 BCIR ileo 190 JPs 20+45 Imp. Ileus Plan: NPO, TPN, Catalan (proctectomy) Parker Monteiro MD Feb 02, 2018 08:32
[2018-02-02 12:00] VITALS: BP 131/84
[2018-02-02] MEDS: Ketorolac 30mg Inj IV PRN ×2 (12:34→20:36)
[2018-02-02] MEDS: Pantoprazole Inj IVP SCH (15:15)
[2018-02-02 16:06] VITALS: BP 127/76
[2018-02-02] MEDS: Morphine Sulfate 4mg/ml Inj (IV USE ONLY) IV PRN ×2 (17:38→22:02)
[2018-02-02 20:00] VITALS: BP 127/82
[2018-02-02] MEDS: Dyna-Hex 2% Top Sol 2oz TOPIC SCH (20:11)
[2018-02-02] MEDS: Fat Emulsion Iv 20% 240 ML in Tpn 1,920 ML IV SCH (20:16)
[2018-02-02] MEDS: Iron Sucrose 100 MG in NS 55 ML IV SCH (20:25)
[2018-02-03] VITALS: BP 114/71
[2018-02-03] MEDS: Ampicillin/Sulbactam Sod 3 GM in NS 110 ML IV SCH ×5 (00:12→23:28)
[2018-02-03] MEDS: D5 1/4NS w/KCl 20mEq 1,000 ML IV SCH ×2 (00:20→18:44)
[2018-02-03 04:00] VITALS: BP 104/60
[2018-02-03] MEDS: NovoLOG Insulin Flexpen SUBQ SCH ×5 (06:00→23:28)
[2018-02-03 06:26] LABS: BASOPHILS % (AUTO) 1.2 % (0.0-2.0); EOSINOPHILS % (AUTO) 4.5 % (0.0-3.0); HEMATOCRIT 40.9 % (42.0-52.0); LYMPHOCYTES % (AUTO) 9.2 % (20.0-45.0); MEAN CORPUSCULAR VOLUME 92 FL (80-99); MONOCYTES % (AUTO) 14.6 % (1.0-10.0); NEUTROPHILS % (AUTO) 70.6 % (45.0-75.0); PLATELET COUNT 304 K/UL (150-450); RED BLOOD COUNT 4.45 M/UL (4.70-6.10); RED CELL DISTRIBUTION WIDTH 11.2 % (11.6-14.8); WHITE BLOOD COUNT 12.9 K/UL (4.8-10.8)
[2018-02-03 07:03] LABS: ALANINE AMINOTRANSFERASE 65 U/L (12-78); ALBUMIN 1.9 G/DL (3.4-5.0); ALBUMIN/GLOBULIN RATIO 0.5 (1.0-2.7); ALKALINE PHOSPHATASE 87 U/L (46-116); ANION GAP 6 mmol/L (5-15); ASPARTATE AMINO TRANSFERASE 40 U/L (15-37); BILIRUBIN,TOTAL 0.5 MG/DL (0.2-1.0); BLOOD UREA NITROGEN 21 mg/dL (7-18); CALCIUM 8.5 MG/DL (8.5-10.1); CARBON DIOXIDE 28 MMOL/L (21-32); CHLORIDE 107 MMOL/L (98-107); PHOSPHORUS 3.8 MG/DL (2.5-4.9); POTASSIUM 3.6 MMOL/L (3.5-5.1); SODIUM 141 MMOL/L (136-145)
[2018-02-03] MEDS: PCA shift volume MISC SCH ×2 (07:05→19:24)
--- NOTE | 2018-02-03 07:19 | General Progress Note ---
Progress Note Progress Note AVSS Ambulating with less pain Abdomen soft, healing nicely Perineum healing Urine 1800 Gastrostomy 2189 (he denies drinking water) BCIR ileo 320 YOAN drain 25 serosang WBC up 12,900 Albumin 1.9 Imp. Persistent ileus with excessive gastrostomy output yesterday (less overnight 12 hours) Leukocytosis Plan: Continue npo and TPN U/A and urine C&S (will remove Catalan tomorrow AM) f/u labs Parker Monteiro MD Feb 03, 2018 07:18
[2018-02-03 08:00] VITALS: BP 113/72
[2018-02-03] MEDS ORDERED: Pantoprazole Inj IVP SCH (09:00)
[2018-02-03] MEDS: Pantoprazole Inj IVP SCH (09:18)
[2018-02-03 12:00] VITALS: BP 119/73
[2018-02-03 16:00] VITALS: BP 130/83
[2018-02-03] MEDS ORDERED: Morphine Sulfate 4mg/ml Inj (IV USE ONLY) IV PRN (16:30)
[2018-02-03] MEDS ORDERED: Rate Change PCA 1 Each MISC PRN (16:30)
[2018-02-03] MEDS ORDERED: Morphine Sulfate 2mg/ml Inj(IV/IM USE ONLY) IVP PRN (16:30)
[2018-02-03] MEDS ORDERED: PCA Morphine 1mg/ml 30 ML IV PRN (16:30)
[2018-02-03] MEDS ORDERED: LORazepam 1mg tab SL PRN ×2 (16:30)
[2018-02-03] MEDS: Fat Emulsion Iv 20% 240 ML in Tpn 1,920 ML IV SCH (20:00)
[2018-02-03 20:21] VITALS: BP 119/61
[2018-02-03] MEDS ORDERED: NS Irrig 1000ml ONE (20:43)
[2018-02-03] MEDS: Iron Sucrose 100 MG in NS 55 ML IV SCH (20:44)
[2018-02-03] MEDS: Dyna-Hex 2% Top Sol 2oz TOPIC SCH (20:44)
[2018-02-04 00:02] VITALS: BP 128/70
[2018-02-04 04:00] VITALS: BP 119/61
[2018-02-04] MEDS: NovoLOG Insulin Flexpen SUBQ SCH ×3 (06:00→18:00)
[2018-02-04] MEDS: Ampicillin/Sulbactam Sod 3 GM in NS 110 ML IV SCH (06:12)
[2018-02-04] MEDS: PCA shift volume MISC SCH ×2 (07:30→19:15)
[2018-02-04 07:50] LABS: BASOPHILS % (AUTO) 2.5 % (0.0-2.0); EOSINOPHILS % (AUTO) 4.1 % (0.0-3.0); HEMATOCRIT 39.5 % (42.0-52.0); HEMOGLOBIN 13.5 G/DL (14.2-18.0); LYMPHOCYTES % (AUTO) 10.9 % (20.0-45.0); MEAN CORPUSCULAR VOLUME 92 FL (80-99); NEUTROPHILS % (AUTO) 68.5 % (45.0-75.0); PLATELET COUNT 341 K/UL (150-450); RED BLOOD COUNT 4.28 M/UL (4.70-6.10); RED CELL DISTRIBUTION WIDTH 11.8 % (11.6-14.8); WHITE BLOOD COUNT 13.2 K/UL (4.8-10.8)
[2018-02-04 08:00] VITALS: BP 121/63
[2018-02-04 08:01] LABS: APPEARANCE,URINE CLEAR; BILIRUBIN, URINE NEGATIVE (NEGATIVE); GLUCOSE, URINE (UA) NEGATIVE (NEGATIVE); KETONES,URINE NEGATIVE (NEGATIVE); LEUKOCYTE ESTERASE ,URINE 1+ (NEGATIVE); NITRITE,URINE NEGATIVE (NEGATIVE); PH,URINE 6.5 (4.5-8.0); PROTEIN,URINE NEGATIVE (NEGATIVE); UROBILINOGEN,URINE NORMAL MG/DL (0.0-1.0)
[2018-02-04 08:03] LABS: COLOR,URINE YELLOW
[2018-02-04 08:57] LABS: ANION GAP 5 mmol/L (5-15); BLOOD UREA NITROGEN 16 mg/dL (7-18); CALCIUM 8.7 MG/DL (8.5-10.1); CARBON DIOXIDE 29 MMOL/L (21-32); CHLORIDE 108 MMOL/L (98-107); CREATININE 0.9 MG/DL (0.55-1.30); POTASSIUM 4.3 MMOL/L (3.5-5.1); SODIUM 142 MMOL/L (136-145)
[2018-02-04] MEDS ORDERED: Morphine Sulfate 4mg/ml Inj (IV USE ONLY) IV PRN (09:00)
[2018-02-04] MEDS ORDERED: PCA Morphine 1mg/ml 30 ML IV PRN (09:00)
[2018-02-04] MEDS ORDERED: Morphine Sulfate 2mg/ml Inj(IV/IM USE ONLY) IVP PRN (09:00)
[2018-02-04] MEDS ORDERED: Ketorolac 30mg Inj IV PRN (09:00)
--- NOTE | 2018-02-04 09:01 | General Progress Note ---
Progress Note Progress Note AVSS Pain is improving and ambulating more frequently Abdomen soft, incision clean, stoma pink Urine 2400 Gastrostomy 730 (much decreased) BCIR ileo 330 enteric WBC up 13,200 BMP still pending U/A abnormal - C&S pending Imp. Resolving ileus Leukocytosis Plan: D/C urinary Catalan Gastrostomy 3:3 protocol d/c antibiotics f/u labs continue TPN Parker Monteiro MD Feb 04, 2018 09:01
[2018-02-04] MEDS: Pantoprazole Inj IVP SCH (09:06)
[2018-02-04] MEDS ORDERED: Rate Change PCA 1 Each MISC PRN (09:15)
[2018-02-04 12:00] VITALS: BP 129/75
[2018-02-04 16:00] VITALS: BP 120/66
[2018-02-04] MEDS: D5 1/4NS w/KCl 20mEq 1,000 ML IV SCH (16:16)
[2018-02-04 20:00] VITALS: BP 125/74
[2018-02-04] MEDS: Dyna-Hex 2% Top Sol 2oz TOPIC SCH (20:04)
[2018-02-04] MEDS: Fat Emulsion Iv 20% 240 ML in Tpn 1,920 ML IV SCH (20:05)
[2018-02-04] MEDS: Iron Sucrose 100 MG in NS 55 ML IV SCH (21:00)
[2018-02-05] VITALS: BP 121/73
[2018-02-05] MEDS: NovoLOG Insulin Flexpen SUBQ SCH ×4 (00:16→18:00)
[2018-02-05 04:00] VITALS: BP 128/69
[2018-02-05 05:09] LABS: BASOPHILS % (AUTO) 1.8 % (0.0-2.0); EOSINOPHILS % (AUTO) 4.2 % (0.0-3.0); HEMATOCRIT 40.1 % (42.0-52.0); HEMOGLOBIN 13.5 G/DL (14.2-18.0); LYMPHOCYTES % (AUTO) 18.3 % (20.0-45.0); MEAN CORPUSCULAR VOLUME 92 FL (80-99); MONOCYTES % (AUTO) 6.6 % (1.0-10.0); NEUTROPHILS % (AUTO) 69.1 % (45.0-75.0); PLATELET COUNT 262 K/UL (150-450); RED BLOOD COUNT 4.37 M/UL (4.70-6.10); RED CELL DISTRIBUTION WIDTH 11.5 % (11.6-14.8); WHITE BLOOD COUNT 13.3 K/UL (4.8-10.8)
[2018-02-05 05:33] LABS: ANION GAP 7 mmol/L (5-15); BLOOD UREA NITROGEN 15 mg/dL (7-18); CALCIUM 8.7 MG/DL (8.5-10.1); CARBON DIOXIDE 25 MMOL/L (21-32); CHLORIDE 107 MMOL/L (98-107); POTASSIUM 4.2 MMOL/L (3.5-5.1); SODIUM 139 MMOL/L (136-145)
[2018-02-05] MEDS: PCA shift volume MISC SCH (07:00)
[2018-02-05 08:00] VITALS: BP 125/71
[2018-02-05] MEDS: Pantoprazole Inj IVP SCH (08:33)
[2018-02-05] MEDS: D5 1/4NS w/KCl 20mEq 1,000 ML IV SCH (11:41)
[2018-02-05 11:46] VITALS: BP 122/78
--- NOTE | 2018-02-05 15:55 | General Progress Note ---
Progress Note Progress Note AVSS Feeling much better and not using CLUB DIRECTOR. Abdomen soft, healing nicely Perineum dry, healing nicely Urine 1760 Gastrostomy 510 BCIR ileo 910 WBC still elevated 13,300 Urine C&S - no growth Imp. Improving Leukocytosis Plan; Clear liquid diet with gastrostomy 3:3 protocol (started this AM) continue TPN f/u labs D/C CLUB DIRECTOR Parker Monteiro MD Feb 05, 2018 15:55
[2018-02-05 16:00] VITALS: BP 128/75
[2018-02-05] MEDS ORDERED: HYDROcodone/Acetamin 7.5/325 tab ORAL PRN (16:00)
[2018-02-05] MEDS ORDERED: D5NS 1000ml IV ONE (16:11)
[2018-02-05] MEDS ORDERED: NS Irrig 1000ml ONE (16:11)
[2018-02-05] MEDS ORDERED: Tubing IV Secondary IV ONE (16:11)
[2018-02-05 20:00] VITALS: BP 131/84
[2018-02-05] MEDS: Fat Emulsion Iv 20% 240 ML in Tpn 1,920 ML IV SCH (20:07)
[2018-02-05] MEDS: Dyna-Hex 2% Top Sol 2oz TOPIC SCH (20:08)
[2018-02-05] MEDS: Phytonadione 10 mg/mL 1ml amp SUBQ SCH (21:27)
[2018-02-06] VITALS: BP 102/74
[2018-02-06 04:00] VITALS: BP 124/76
[2018-02-06 05:36] LABS: BASOPHILS % (AUTO) 1.6 % (0.0-2.0); EOSINOPHILS % (AUTO) 3.4 % (0.0-3.0); HEMATOCRIT 40.6 % (42.0-52.0); HEMOGLOBIN 13.6 G/DL (14.2-18.0); LYMPHOCYTES % (AUTO) 11.4 % (20.0-45.0); MEAN CORPUSCULAR VOLUME 93 FL (80-99); MONOCYTES % (AUTO) 13.4 % (1.0-10.0); NEUTROPHILS % (AUTO) 70.3 % (45.0-75.0); PLATELET COUNT 363 K/UL (150-450); RED BLOOD COUNT 4.39 M/UL (4.70-6.10); RED CELL DISTRIBUTION WIDTH 11.5 % (11.6-14.8); WHITE BLOOD COUNT 14.7 K/UL (4.8-10.8)
[2018-02-06 06:03] LABS: ANION GAP 6 mmol/L (5-15); BLOOD UREA NITROGEN 14 mg/dL (7-18); CALCIUM 8.6 MG/DL (8.5-10.1); CARBON DIOXIDE 27 MMOL/L (21-32); CHLORIDE 106 MMOL/L (98-107); CREATININE 0.9 MG/DL (0.55-1.30); POTASSIUM 4.5 MMOL/L (3.5-5.1); SODIUM 139 MMOL/L (136-145)
[2018-02-06] MEDS: NovoLOG Insulin Flexpen SUBQ SCH ×4 (06:17→18:00)
[2018-02-06] MEDS: D5 1/4NS w/KCl 20mEq 1,000 ML IV SCH (06:18)
[2018-02-06 08:00] VITALS: BP 133/70
--- NOTE | 2018-02-06 08:48 | General Progress Note ---
Progress Note Progress Note AVSS tolerated clear liquid diet and gastrostomy 3:3 protocol but c/o recurring LLQ/left groin pain Abdomen soft, healing well. Perineum healing well Urien 3210 Gastrostomy 750 BCIR ileo 915 WBC up 14,700 Hgb 13.6 BMP - wnl Imp. Leukocytosis and LLQ pain Plan: STAT CT scan abdomen+pelvis with oral and IV contrast continue TPN Parker Monteiro MD Feb 06, 2018 08:48
[2018-02-06] MEDS: Pantoprazole Inj IVP SCH (09:02)
--- NOTE | 2018-02-06 13:09 | Diagnostic Imaging Report ---
Clinical Indication: Abdominal pain, left lower quadrant left groin pain Technique: Patient given enteric contrast IV administration nonionic contrast. Venous phase spiral acquisition obtained through the abdomen and pelvis. Multiplanar reconstructions were generated. Total dose length product 1223.96 mGycm. CTDIvol(s) 19.75 mGy. Dose reduction achieved using automated exposure control Comparison: none Findings: Patient is status post recent surgery on 01/28/2018. There is a midline skin incision and midline skin maribel. There is a right lower quadrant continent ileostomy, contains a catheter. Ingested contrast is seen within the ileostomy pouch. Small bowel loops are nondilated. There is a gastrostomy, balloon in the gastric fundus. Patient is status post proctocolectomy. Some edema is seen in the presacral fat, presumably related to such. Small amount of fluid is seen within the pelvis, within the right paracolic gutter, to a slight extent over the dome of the liver and the spleen. There is a moderate amount of free intraperitoneal air, predominantly anteriorly and superiorly anterior to the liver. Some gas bubbles are also seen within the left upper quadrant fat below the dome of the diaphragm, adjacent to the greater curvature the stomach, and in the left hemicolectomy bed, and and a few bubbles in the anterior lower peritoneal space. No significant incisional fluid collection demonstrated. No definite loculated fluid collection demonstrated. Proximal small bowel loops are mildly thick-walled. The liver, gallbladder, bile ducts, pancreas, spleen, adrenals, kidneys are all unremarkable. No retroperitoneal or mesenteric mass or adenopathy. No pelvic mass or adenopathy. The lung bases demonstrate bilateral basilar atelectatic changes. The bones are unremarkable. There is possible incompletely descended right testicle. Impression: Postsurgical changes, as described Pneumoperitoneum. Most likely related to the recent abdominal surgery. However, amount of residual pneumoperitoneum is fairly considerable for 9 days postop, and the possibility of leaking hollow viscus should be considered No evidence of small bowel obstruction. Contrast reaches the ileostomy Mild wall thickening of proximal jejunal loops, could indicate mild enteritis changes Bilateral basilar pulmonary atelectatic changes Possible incompletely descended right testicle. Correlate with clinical findings The CT scanner at [facility] is accredited by the [employer] and the scans are performed using protocols designed to limit radiation exposure to as low as reasonably achievable to attain images of sufficient resolution adequate for diagnostic evaluation.
[2018-02-06 16:00] VITALS: BP 115/69
[2018-02-06 20:00] VITALS: BP 127/72
[2018-02-06] MEDS: Fat Emulsion Iv 20% 240 ML in Tpn 1,920 ML IV SCH (21:14)
[2018-02-06] MEDS: Iron Sucrose 100 MG in NS 55 ML IV SCH (21:14)
[2018-02-06] MEDS: Dyna-Hex 2% Top Sol 2oz TOPIC SCH (21:14)
[2018-02-07] VITALS: BP 115/64
[2018-02-07] MEDS: NovoLOG Insulin Flexpen SUBQ SCH ×3 (00:19→12:00)
[2018-02-07 04:00] VITALS: BP 115/69
[2018-02-07 05:08] LABS: BASOPHILS % (AUTO) 1.2 % (0.0-2.0); EOSINOPHILS % (AUTO) 3.2 % (0.0-3.0); HEMATOCRIT 37.3 % (42.0-52.0); LYMPHOCYTES % (AUTO) 9.3 % (20.0-45.0); MEAN CORPUSCULAR VOLUME 93 FL (80-99); MONOCYTES % (AUTO) 11.9 % (1.0-10.0); NEUTROPHILS % (AUTO) 74.5 % (45.0-75.0); PLATELET COUNT 372 K/UL (150-450); RED BLOOD COUNT 4.02 M/UL (4.70-6.10); RED CELL DISTRIBUTION WIDTH 11.7 % (11.6-14.8)
[2018-02-07 05:18] LABS: ANION GAP 6 mmol/L (5-15); BLOOD UREA NITROGEN 17 mg/dL (7-18); CALCIUM 8.3 MG/DL (8.5-10.1); CARBON DIOXIDE 27 MMOL/L (21-32); CHLORIDE 105 MMOL/L (98-107); POTASSIUM 4.1 MMOL/L (3.5-5.1); SODIUM 137 MMOL/L (136-145)
[2018-02-07 08:00] VITALS: BP 115/70
[2018-02-07] MEDS: Pantoprazole Inj IVP SCH (09:27)
--- NOTE | 2018-02-07 09:55 | General Progress Note ---
Progress Note Progress Note AVSS Feels hot then cold but no chills and no fevers CT scan - no acute findings reviewed with Radiologist - some pneumoperitoneum likely residual and no extravasation Abdomen soft, flat, non-tender. Left groin pain is positional only Tolerated full liquids and gastrostomy 5:1 Urine 2800 BCIR ileo 1890 (includingj CT scan contrast) - 570cc overnight WBC 17.000 (rising) BMP - wnl Imp. Leukocytosis ? etiology Plan: Taper and D/C TPN and remove PIC line and culture tip Start peripheral IV BCIR low residue diet + plug gastrostomy continuously f/u labs in AM - if WBC rising will need to start IV antibiotics and do f/u CT scan Parker Monteiro MD Feb 07, 2018 09:55
[2018-02-07] MEDS ORDERED: Zoysn 3.37gm in NS 100ML IVPB SCH (10:30)
[2018-02-07 12:00] VITALS: BP 129/72
[2018-02-07 16:00] VITALS: BP 107/71
[2018-02-07 20:00] VITALS: BP 122/73
[2018-02-07] MEDS: Iron Sucrose 100 MG in NS 55 ML IV SCH (20:47)
[2018-02-07] MEDS ORDERED: DiphenhydrAMINE 50mg/ml Inj IVP PRN (23:30)
[2018-02-07] MEDS ORDERED: Fluconazole 100mg tab ORAL ONE (23:30)
[2018-02-08] VITALS (7 sets, daily range): BP systolic 117–137; BP diastolic 61–80
[2018-02-08 05:41] LABS: BASOPHILS % (AUTO) 1.5 % (0.0-2.0); EOSINOPHILS % (AUTO) 4.5 % (0.0-3.0); HEMATOCRIT 40.2 % (42.0-52.0); HEMOGLOBIN 13.7 G/DL (14.2-18.0); LYMPHOCYTES % (AUTO) 9.3 % (20.0-45.0); MEAN CORPUSCULAR VOLUME 93 FL (80-99); MONOCYTES % (AUTO) 11.1 % (1.0-10.0); NEUTROPHILS % (AUTO) 73.6 % (45.0-75.0); PLATELET COUNT 390 K/UL (150-450); RED BLOOD COUNT 4.32 M/UL (4.70-6.10); RED CELL DISTRIBUTION WIDTH 11.8 % (11.6-14.8); WHITE BLOOD COUNT 16.7 K/UL (4.8-10.8)
[2018-02-08 06:15] LABS: ANION GAP 4 mmol/L (5-15); BLOOD UREA NITROGEN 18 mg/dL (7-18); CARBON DIOXIDE 26 MMOL/L (21-32); CHLORIDE 105 MMOL/L (98-107); CREATININE 1.2 MG/DL (0.55-1.30); POTASSIUM 5.4 MMOL/L (3.5-5.1); SODIUM 135 MMOL/L (136-145)
[2018-02-08] MEDS: Pantoprazole Inj IVP SCH (08:25)
--- NOTE | 2018-02-08 09:55 | General Progress Note ---
Progress Note Progress Note AVSS Feeling better with only intermittent left groin aching pain. Not using any analgesics Eating BCIR diet 90% Abdomen soft, 1/3 maribel removed. yeast skin rash gio-stomal responding to Nystatin cream + more frequent dressing changes Perineum healing nicely Urine 1475 BCIR ileo 1540 WBC down 16,700 K 5.4 Imp. Persistent leukocytosi Plan: maintain continuous drainage of BCIR f/u labs vitamin c prn thick BCIR ileo effluent If leukocytosis persists will need repeat f/u CT scan of abd+pelvis Parker Monteiro MD Feb 08, 2018 09:55
[2018-02-08 11:19] LABS: APPEARANCE,URINE CLEAR; BILIRUBIN, URINE NEGATIVE (NEGATIVE); GLUCOSE, URINE (UA) NEGATIVE (NEGATIVE); KETONES,URINE NEGATIVE (NEGATIVE); LEUKOCYTE ESTERASE ,URINE 1+ (NEGATIVE); NITRITE,URINE NEGATIVE (NEGATIVE); PH,URINE 5 (4.5-8.0); PROTEIN,URINE 2+ (NEGATIVE); UROBILINOGEN,URINE NORMAL MG/DL (0.0-1.0)
[2018-02-08 11:46] LABS: COLOR,URINE YELLOW
[2018-02-08] MEDS ORDERED: LORazepam 1mg tab SL PRN (12:30)
[2018-02-08] MEDS ORDERED: Tubing IV Secondary IV ONE (13:37)
[2018-02-08] MEDS ORDERED: NS 275ml ONE (13:37)
[2018-02-08] MEDS ORDERED: NS Irrig 1000ml ONE (13:37)
[2018-02-08] MEDS: Iron Sucrose 100 MG in NS 55 ML IV SCH (20:55)
[2018-02-09] VITALS: BP 120/70
[2018-02-09] MEDS: LORazepam 1mg tab SL PRN (03:05)
[2018-02-09 04:00] VITALS: BP 115/63
[2018-02-09 05:37] LABS: BASOPHILS % (AUTO) 1.4 % (0.0-2.0); EOSINOPHILS % (AUTO) 4.9 % (0.0-3.0); HEMATOCRIT 39.9 % (42.0-52.0); HEMOGLOBIN 13.6 G/DL (14.2-18.0); LYMPHOCYTES % (AUTO) 11.3 % (20.0-45.0); MEAN CORPUSCULAR VOLUME 93 FL (80-99); MONOCYTES % (AUTO) 9.6 % (1.0-10.0); NEUTROPHILS % (AUTO) 72.8 % (45.0-75.0); PLATELET COUNT 415 K/UL (150-450); RED CELL DISTRIBUTION WIDTH 11.8 % (11.6-14.8); WHITE BLOOD COUNT 13.7 K/UL (4.8-10.8)
[2018-02-09 05:53] LABS: ANION GAP 5 mmol/L (5-15); BLOOD UREA NITROGEN 18 mg/dL (7-18); CALCIUM 8.8 MG/DL (8.5-10.1); CARBON DIOXIDE 29 MMOL/L (21-32); CHLORIDE 104 MMOL/L (98-107); CREATININE 1.2 MG/DL (0.55-1.30); POTASSIUM 4.3 MMOL/L (3.5-5.1); SODIUM 137 MMOL/L (136-145)
[2018-02-09 08:00] VITALS: BP 124/87
[2018-02-09] MEDS: Pantoprazole Inj IVP SCH (09:02)
--- NOTE | 2018-02-09 09:07 | General Progress Note ---
Progress Note Progress Note AVSS Tolerating the BCIR diet with gastrostomy plugged. Left groin pain /LLQ pain is intermittent Abdomen soft. Billie removed and steristrips applied Perineum healing nicely ]Urine 2210 BCIR ileo 790 WBC 13,700 Hgb 13.6 Platelets up 415,000 BUN 18 Cr 1.2 Imp. Persistent leukocytosis Plan; Maintain continuous drainage of BCIR continent ileostomy f/u labs in AM - if WBC still elevated will do f/u CT scan abd+pelvis - if WBC normal with start BCIR self-intubations Parker Monteiro MD Feb 09, 2018 09:07
[2018-02-09] MEDS ORDERED: NS Irrig 1000ml ONE (09:34)
[2018-02-09 12:00] VITALS: BP 126/67
[2018-02-09 16:00] VITALS: BP 112/65
[2018-02-09 20:00] VITALS: BP 118/72
[2018-02-09] MEDS: Iron Sucrose 100 MG in NS 55 ML IV SCH (20:41)
[2018-02-09] MEDS: Zolpidem 5mg tab ORAL PRN (21:48)
[2018-02-10] VITALS: BP 107/65
[2018-02-10] MEDS: LORazepam 1mg tab SL PRN (03:14)
[2018-02-10 04:00] VITALS: BP 110/69
[2018-02-10 05:29] LABS: BASOPHILS % (AUTO) 1.2 % (0.0-2.0); EOSINOPHILS % (AUTO) 4.9 % (0.0-3.0); HEMATOCRIT 37.5 % (42.0-52.0); HEMOGLOBIN 13.1 G/DL (14.2-18.0); LYMPHOCYTES % (AUTO) 11.8 % (20.0-45.0); MEAN CORPUSCULAR VOLUME 92 FL (80-99); MONOCYTES % (AUTO) 11.1 % (1.0-10.0); PLATELET COUNT 393 K/UL (150-450); RED BLOOD COUNT 4.08 M/UL (4.70-6.10); RED CELL DISTRIBUTION WIDTH 11.6 % (11.6-14.8); WHITE BLOOD COUNT 12.6 K/UL (4.8-10.8)
[2018-02-10 05:48] LABS: ANION GAP 3 mmol/L (5-15); BLOOD UREA NITROGEN 17 mg/dL (7-18); CALCIUM 8.3 MG/DL (8.5-10.1); CARBON DIOXIDE 28 MMOL/L (21-32); CHLORIDE 106 MMOL/L (98-107); CREATININE 1.2 MG/DL (0.55-1.30); POTASSIUM 4.7 MMOL/L (3.5-5.1); SODIUM 137 MMOL/L (136-145)
[2018-02-10 08:00] VITALS: BP 115/73
--- NOTE | 2018-02-10 08:05 | General Progress Note ---
Progress Note Progress Note AVSS Still occasional LLQ pain with movement. tolerating BCIR diet Abdomen soft, incision clean, stoma with slight lateral separation Urine 1450 BCIR ileo 1140 WBC still high 12,600 BMP - wnl Imp. Persistent leukocytosis and LLQ pain Plan: STAT CT scan abd+pelvis with oral and IV contrast IV fluids Parker Monteiro MD Feb 10, 2018 08:05
[2018-02-10] MEDS ORDERED: LORazepam 1mg tab SL PRN (08:15)
[2018-02-10] MEDS: Pantoprazole Inj IVP SCH (08:16)
[2018-02-10] MEDS ORDERED: D5 1/4NS w/KCl 20mEq 1,000 ML IV SCH (09:00)
[2018-02-10] MEDS ORDERED: Silver Nitrate Stick TOPIC SCH (09:00)
[2018-02-10 12:00] VITALS: BP 112/70
--- NOTE | 2018-02-10 12:07 | Diagnostic Imaging Report ---
Indication: Abdominal pain Technique: Continuous helical transaxial imaging of the abdomen and pelvis was obtained from the lung bases to the pubic symphysis during intravenous contrast administration. Coronal 2-D reformats were also obtained. Study obtained in a Siemens sensation [address] Automatic Exposure Control was utilized. Total Dose length Product (DLP): 1091.[address] Dose Index Volume (CTDIvol): 18.4 mGy Comparison: 02/06/2018 Findings: Gastrostomy is again noted. There is persistent pneumoperitoneum which may be related to recent surgery. Skin maribel are now absent. There is a small amount of free fluid just below the right lobe of the liver and a small amount of free fluid within the pelvis again demonstrated. This appears relatively unchanged. There is a continent ileostomy present with the catheter entering a pouch in the lower abdomen. There is contrast entering the pouch, catheter and back. Proximal loops of small bowel do not appear distended and there is no evidence of bowel obstruction. Solid organs including the pancreas, liver, adrenal glands, spleen and kidneys remain unremarkable. There is no hydronephrosis. The bladder is unremarkable. IMPRESSION: Persistent pneumoperitoneum compared to the exam from 02/06/2018. The amount of air has not increased. However, presence of this amount of air several days following surgery is unusual. Please correlate clinically. Minimal residual fluid in the right side of the abdomen and pelvis again demonstrated, presumably postsurgical in nature. No significant change from the last study. No evidence of bowel obstruction. Catheter and ileostomy appear unremarkable. Gastrostomy in good position. The CT scanner at [facility] is accredited by the [employer] and the scans are performed using dose optimization techniques as appropriate to a performed exam including Automatic Exposure control.
[2018-02-10] MEDS ORDERED: Silver Nitrate Stick TOPIC PRN (14:45)
[2018-02-10 16:00] VITALS: BP 117/70
[2018-02-10 20:00] VITALS: BP 115/69
[2018-02-10] MEDS: Iron Sucrose 100 MG in NS 55 ML IV SCH (21:03)
[2018-02-10] MEDS: Zolpidem 5mg tab ORAL PRN (21:55)
[2018-02-11] VITALS: BP 116/69
[2018-02-11 04:00] VITALS: BP 113/64
[2018-02-11 06:06] LABS: BASOPHILS % (AUTO) 1.6 % (0.0-2.0); HEMATOCRIT 38.3 % (42.0-52.0); HEMOGLOBIN 12.8 G/DL (14.2-18.0); LYMPHOCYTES % (AUTO) 13.8 % (20.0-45.0); MEAN CORPUSCULAR VOLUME 92 FL (80-99); MONOCYTES % (AUTO) 13.2 % (1.0-10.0); NEUTROPHILS % (AUTO) 65.3 % (45.0-75.0); PLATELET COUNT 450 K/UL (150-450); RED BLOOD COUNT 4.18 M/UL (4.70-6.10); RED CELL DISTRIBUTION WIDTH 11.5 % (11.6-14.8); WHITE BLOOD COUNT 9.7 K/UL (4.8-10.8)
[2018-02-11 06:34] LABS: ANION GAP 4 mmol/L (5-15); BLOOD UREA NITROGEN 16 mg/dL (7-18); CALCIUM 8.5 MG/DL (8.5-10.1); CARBON DIOXIDE 25 MMOL/L (21-32); CHLORIDE 107 MMOL/L (98-107); CREATININE 1.1 MG/DL (0.55-1.30); POTASSIUM 4.2 MMOL/L (3.5-5.1); SODIUM 136 MMOL/L (136-145)
[2018-02-11] MEDS: Pantoprazole Inj IVP SCH (09:00)
--- NOTE | 2018-02-11 09:48 | General Progress Note ---
Progress Note Progress Note AVSS Feels well. Tolerating BCIR diet. Abdomen soft, incision healed. Stoma has partial separation laterally. Perineum healing nicely Urine 2150 BCIR ileo 760 WBC 9700 Hgb 12.8 Platelets 450,000 BUN 16 Cr 1.1 BCIR ileo catheter removed - reinserts with slight resistance mid-way into pouch Imp. Improved Plan: RN education and supervision of BCIR self-intubations: q2h am to hs and q0200 Continue I&O Will remove gastrostomy and perineal sutures tomorrow Parker Monteiro MD Feb 11, 2018 09:48
[2018-02-11] MEDS: Ascorbic Acid 500mg tab ORAL PRN ×3 (11:28→20:07)
[2018-02-11 12:37] VITALS: BP 131/67
[2018-02-11] MEDS ORDERED: Ascorbic Acid 500mg tab ORAL SCH (15:39)
[2018-02-11] MEDS ORDERED: Tubing IV Secondary IV ONE (16:03)
[2018-02-11] MEDS ORDERED: NS 275ml ONE (16:03)
[2018-02-11] MEDS ORDERED: NS Irrig 1000ml ONE (16:03)
[2018-02-11 16:18] VITALS: BP 119/69
[2018-02-11 20:00] VITALS: BP 113/71
[2018-02-12] MEDS: Ascorbic Acid 500mg tab ORAL PRN ×4 (02:18→17:53)
[2018-02-12 06:30] VITALS: BP 119/74
[2018-02-12 07:52] VITALS: BP 132/75
--- NOTE | 2018-02-12 08:05 | General Progress Note ---
Progress Note Progress Note AVSS Learning intubation technique - using 30Fr Mary catheter. Abdomen soft Urine 2530 BCIR ileo 685 thick but better with Vitamin C and grape juice Imp. Doing nicely Plan: Continue RN education/supervision of BCIR intubations Will remove gastrostomy and perineal sutures today Parker Monteiro MD Feb 12, 2018 08:05
[2018-02-12 12:00] VITALS: BP 109/73
[2018-02-12 13:25] VITALS: BP 109/73
[2018-02-12 16:00] VITALS: BP 116/91
[2018-02-12 20:30] VITALS: BP 117/72
[2018-02-12] MEDS: HYDROcodone/Acetamin 7.5/325 tab ORAL PRN (22:31)
[2018-02-13 01:15] VITALS: BP 121/74
[2018-02-13] MEDS: HYDROcodone/Acetamin 7.5/325 tab ORAL PRN (03:13)
[2018-02-13 04:30] VITALS: BP 104/70
[2018-02-13 08:00] VITALS: BP 119/78
[2018-02-13] MEDS ORDERED: Simethicone Drops 80mg/1.2ml ORAL STA (08:14)
--- NOTE | 2018-02-13 08:32 | General Progress Note ---
Progress Note Progress Note AVSS Had pain at gastrostomy site and gas pains with output very watery Abdomen soft, gastrostomy site healing; stoma healing Perineum healing Urine 2074 BCIR ileo 1165 Imp. Stable Plan: discharge with full instructions/limitations/supplies provided/discussed simethicone prn gas and d/c grape juice/vitamin C until effluent thicker again f/u / and prn - advised tylenol/ibuprofen prn pain Parker Monteiro MD Feb 13, 2018 08:32
--- NOTE | 2018-02-17 13:17 | Discharge Summary ---
Discharge Summary Hospital Course Date of Admission Jan 27, 2018 at 07:02 Date of Discharge Feb 13, 2018 at 09:30 Admitting Diagnosis Intractable ulcerative colitis with dysplasia on recent colonoscopy. Reason for Hospitalization: Elective surgery HPI Arnaldo Jeffries is a 38 year old male who was admitted on Jan 27, 2018 at 07: 02 for Ulcerative Colitis With Dysphagia. Patient was admitted for elective surgery Procedures s/p 01/28/[address] Monteiro 1. Proctocolectomy. 2. Paul continent intestinal reservoir. 3. Catheter gastrostomy. Hospital Course s/p surgery 01/28 NPO IVF Bed rest initially Pain management with DECK LID FITTER Morphine Incentive spirometer SCD started TPN I/O clsoely monitored labs closely monitored Continue Catalan catheter Physical therapy out of bed as tolerated DVT prophylaxis with heparin Anemia workup with evidence of iron deficiency folate deficiency and midrange B12 off Heparin Venofer IV daily B 12 IM 1 Folic acid added to TPN Toradol added to pain management perineal and abdominal incision healing well ambulated YOAN #1 dc continue strict I/O YOAN #2, Catalan, gastrotomy, BCIR 02/01 dc basal DECK LID FITTER rate 02/04 dc Catalan; voided freely pathology revealed no malignancy, only high grade of dysplasia urine cx negative, off abx clear liquid diet with gastrostomy 3:3 protocol started 02/05 continue TPN DECK LID FITTER dc 02/05 02/06 WBC with trend up, pain LLQ stat CT A/P : no evidence of obstruction, postsurgical changes, Bilateral [id number] 02/07 TPN tapered and dc PICC dc cath tip cx negative BCIR low residue diet ; plug gastrostomy continuously continuous drainage of BCIR vitamin C prn for thick BCIR ileo effluent CT A/P repeated, no evidence of SB obstruction leukocytosis resolved RN education and supervision of BCIR self-intubations: q2h am to hs and q0200 strict I/O continued 02/12 Perineal sutures and gastrostomy removed - 02/13 discharged full instructions/limitations/supplies provided/discussed Simethicone prn gas and d/c grape juice/vitamin C until effluent thicker again f/u 02/17 with surgeon and prn Tylenol/Ibuprofen prn pain FINAL DIAGNOSES Intractable ulcerative colitis with dysplasia on recent colonoscopy. s/p 01/28 Proctocolectomy. Paul continent intestinal reservoir. Catheter gastrostomy. persistent ileus -resolved Atelectasis Malnutrition Iron deficiency anemia -stable Folate deficiency Persistent leukocytosis-resolved Discharge Condition Upon Discharge: stable Discharge Disposition Patient was discharged to Home (01) Discharge Instructions Discharge Instructions Special Instructions I have been assigned to complete a D/C Summary on this account. I was not involved in the patient management Paulette Forbes NP Feb 17, 2018 13:17
== END 2018-02-13 09:30 | disposition home or self-care (01) | DRG 330 ==
LOC: 3E 07:02
DX: K51.811 Other ulcerative colitis with rectal bleeding (principal); K56.7 Ileus, unspecified; E46 Unspecified protein-calorie malnutrition; J98.11 Atelectasis; D12.5 Benign neoplasm of sigmoid colon; M72.2 Plantar fascial fibromatosis; D72.829 Elevated white blood cell count, unspecified; Z68.34 Body mass index [BMI] 34.0-34.9, adult; D52.9 Folate deficiency anemia, unspecified; R13.10 Dysphagia, unspecified
CPT/HCPCS: 36415; 36569; 71045; 74177; 76937; 80048; 80053; 81001; 81003; 82607; 82746; 82962; 83540; 83550; 83735; 84100; 85007; 85025; 85610; 85730; 86850; 86900; 86901; 87070; 87086; 93005; 94003; 94150; 94760; J1815; J2405; J2710